=== PATIENT | male | born 1975 | race Two or more races ===

== ENCOUNTER 2024-08-26 10:03 | Outpatient (AMB) | payer MEDICAID, SELFPAY ==
--- NOTE | 2024-08-26 10:10 | PD.RESCLINIC ---
Vital Signs 08/26/24 10:23 Height 1.88 m Height Method Stated Weight 135.284 kg Weight Measurement Method Standing Scale BMI 38.2 BP 145/82 H Blood Pressure Source Automatic Cuff Blood Pressure Location Right Upper Arm Position Sitting Respiration 18 Pulse 67 Pulse Source Monitor Temp 97.7 F Temp Source Oral Pulse Oximetry (%) 98 Oxygen Delivery Method Room Air Allergies/Meds Allergies & Medications Allergies No Known Allergies Allergy (Verified 08/26/24 10:24) MA Intake Visit Data Collection New Patient or Established: Established Patient (seen at [facility] within 3 years) Seen by Clinical Staff ONLY (RN/MA): No Pain Present Currently: Yes Pain Location: Arm Pain scale:: 5 Pain Scale Used: Manzano-Calabrese/Numerical Robotic Maintenance Technician Required: No PCP or OBGYN visit in last 3 months: No Hx Now: No Do You Feel Safe at Home: Yes Authorities Contacted: N/A Smoking Status Smoking Status: Current every day smoker Cessation Counseling Provided: ANNIED was advised that quitting smoking is the single most important factor to protect the health of themselves and their family. Discussed the benefits of quitting smoking with patient. Encouraged patient to quit smoking and provided Cessation assistance materials and resources. Tobacco Use: Cigarette Years smoked: 20 Are you interested in quitting?: Yes Would you like additional Smoking Cessation Counseling?: Yes Immunization / Flu Flu Vaccine in the Last 12 Months: No Flu Vaccine Exclusion Criteria: No Exclusion Criteria Past Medical History Past Medical History NEUROLOGIC: Negative Neurological Disorders CARDIAC: Positive Hypercholesterolemia; Negative Congestive Heart Failure RESPIRATORY: Positive Asthma; Negative Chronic Obstructive Pulmonary Disease (COPD) GASTROINTESTINAL: Negative Gastrointestinal Disorders GENITOURINARY: Negative Genitourinary Disorders or Renal Disease REPRODUCTIVE: Negative Testicular Cancer ENDOCRINE: Negative Diabetes Mellitus Type 1 or Diabetes Mellitus Type 2 HEMATOLOGIC: Negative Blood Disorders OTHER HISTORY: Negative Hospitalization, Down Syndrome, Developmental Delay, Falls, Blood Transfusions, Anesthesia Reactions (previous anesthesia), MRSA, Clostridium Difficile, Cancer or Testicular Cancer Family History FAMILY HISTORY: Positive Family Cardiac Disorders and Family Cancer Social History SMOKING STATUS: Smoking status: Current every day smoker ALCOHOL FREQUENCY: Alcohol Intake Frequency: holidays/special occasions only LIVES WITH: Lives With: Children and Spouse Patient Portal Questionaires Social History Tobacco History Smoking Status: Current every day smoker Alcohol History Alcohol Intake Frequency: holidays/special occasions only Domestic Abuse History Do You Feel Safe at Home: Yes Review of Systems Report any current symptoms Only answer those that you have currently: Past Medical History Past Medical History Have you ever been diagnosed with any of the following: Cardiology Problems Hypercholesterolemia: Yes Congestive Heart Failure: No Respiratory Problems Chronic Obstructive Pulmonary Disease (COPD): No Asthma: Yes Genital/Urinary Problems Renal Disease: No Reproductive Problems Testicular Cancer: No Endocrine Problems Diabetes Mellitus Type 1: No Diabetes Mellitus Type 2: No Other Problems Hospitalization: No Down Syndrome: No Developmental Delay: No Falls: No Blood Transfusions: No Anesthesia Reactions: No (previous anesthesia) MRSA: No Clostridium Difficile: No Cancer: No History of Present Illness HPI Narrative A 49-year-old patient known case of hypertension, hyperlipidemia, obesity, TIA in 2023, nonalcoholic steatohepatitis, 3 mm pulmonary nodule, chronic headache, presented to the clinic after he experienced sudden onset dizziness and fell down and broke his left forearm. Patient reported that the dizziness started suddenly with no warning symptoms, denied any chest pain, tinnitus, palpitation, sweating or chest pain. Denied any blurry vision or diplopia and denied any focal weakness. He reported that it lasted for pressure. Less than 5 seconds and history number the incident. He got up by himself with no need for any spa assistant manager. He went to the ED in [facility] and he was found to have fracture on the left forearm. He did not have x-ray reports or images however he reported that they asked him to follow-up with his PCP for referral to emergency room specialist. On questioning patient reported that he ran out of all his medications including his blood pressure medications. When he was at the ED they mentioned that his blood pressure was within normal limits, and today his blood pressure was also within normal limits. Patient is following up with the personnel generalist manager Dr. Wilman Calderon however because of insurance issues he wanted to switch to another physician as he was paying [id number]. In review of other system patient reported that he has been trying to lose weight however creates no success and he was mentioning that he has chronic knee pain especially on the right side and he believes it is because of his increased body weight and he was wondering if he can get a prescription for weight loss injections. Patient also reported that he has been waiting for sleep study appointment as he believes that he has obstructive sleep apnea because of his obesity and his chronic headaches. Review of Systems Review of Systems Systems Reviewed: All systems reviewed, normal except as documented Objective/Exam Narrative Physical exam: GEN: AOx3, able to speak full sentences HEENT: NC/AC, oral mucosa moist, neck supple CVS: RRR, S1-S2 present, no murmurs appreciated RESP: CTAB GI: soft,non distended, non tender, NBS MSK: Left forearm with cast, normal fitting, no discoloration, no numbness, capillary refill less than 3 seconds. Able to move all fingers in all directions. SKIN: warm and dry SAFETY INSPECTOR: CN II-XII and Sensation grossly intact. Assessment & Plan Diagnosis / Problem List (1) Left forearm fracture: Status: Acute Qualifiers: Encounter type: subsequent encounter Fracture type: closed Fracture healing: with routine healing Qualified Code(s): S52.92XD - Unspecified fracture of left forearm, subsequent encounter for closed fracture with routine healing Plan: ? Stat Referral to orthopedic physician and [place] as per patient request ? Pain is well-controlled by pain medications that was given to him from [facility] (2) Dizziness: Status: Acute Plan: ? Referral to personnel generalist manager in [place] for possible arrhythmias workup. ? Decrease his amlodipine to 5 mg p.o. daily, patient was instructed to follow-up with his blood pressure daily before and after taking his blood pressure medications. ? Refill his blood pressure medication losartan 50 mg p.o. daily ?EKG (3) Obesity (BMI 30-39.9): Status: Acute Plan: ? Zepbound 2.5 mg subcutaneous weekly ? Patient was instructed to keep hydrated and to increase his protein intake. Orders: Orders EKG (RT) Today I20.9 - Angina pectoris, unspecified Referrals Orthopedics S52.92XA - Unspecified fracture of left forearm, initial encounter for closed fracture Cardiology I20.9 - Angina pectoris, unspecified, R42 - Dizziness and giddiness Office Procedures [facility] Level of Care Nursing/Assessment Patient Status: Established Patient Nursing Assessment/Reassessment: Medication Reconciliation, Update PMH in EMR and Vital Signs Coordination of Care: Complex Care and Chronic Disease 1-5, Consent,records obtained, informed consent, Education Simp Pt/Fam, 1 Ins Authorization, Ref for ancillary service and Staff clarify orders Established Patient Charge Established Patient Point Assignment: 120 Established Patient Point Charge: Level 4 (120-155)
[2024-08-26 10:23] VITALS: BP 145/82; PULSE 67; RESP 18; TEMP 36.5; O2SAT 98; BMI 38.2
== END 2024-08-26 11:23 | disposition home or self-care (01) ==
LOC: HODAHC 10:03
PROVIDERS: Supervising Provider Internal Medicine; Visit Provider Student in an Organized Health Care Education/Training Program
DX: R42 Dizziness and giddiness (principal); S52.92XD Unspecified fracture of left forearm, subsequent encounter for closed fracture with routine healing; W19.XXXD Unspecified fall, subsequent encounter; I10 Essential (primary) hypertension; E78.5 Hyperlipidemia, unspecified; E66.9 Obesity, unspecified; Z68.38 Body mass index [BMI] 38.0-38.9, adult; Z86.73 Personal history of transient ischemic attack (TIA), and cerebral infarction without residual deficits; M25.561 Pain in right knee; G89.29 Other chronic pain
CPT/HCPCS: 99214; G0463

== ENCOUNTER 2024-12-05 10:18 | Outpatient (AMB) | payer MEDICAID, SELFPAY ==
[2024-12-05 10:29] VITALS: BP 135/77; PULSE 59; RESP 18; TEMP 37; O2SAT 98; BMI 37.3
--- NOTE | 2024-12-05 10:29 | ACNOTE_ITS ---
Vital Signs 12/05/24 10:29 Height 1.88 m Height Method Stated Weight 132.109 kg Weight Measurement Method Standing Scale BMI 37.3 BP 135/77 H Blood Pressure Source Automatic Cuff Blood Pressure Location Right Upper Arm Position Sitting Respiration 18 Pulse 59 L Pulse Source Monitor Temp 98.6 F Temp Source Temporal Artery Scan Pulse Oximetry (%) 98 Oxygen Delivery Method Room Air Allergies/Meds Allergies & Medications Allergies No Known Allergies Allergy (Verified 12/05/24 10:31) Medication Reconciliation amlodipine 10 mg tablet 5 mg (1/2 x 10 mg) PO QDAY hypertension #30 tabs 08/07 08/30 [Rx Confirmed 12/05/24] atorvastatin 80 mg tablet 80 mg PO QPM #30 tabs 08/26/24 [Rx Confirmed 12/05/24] fenofibrate 160 mg tablet 160 mg PO QDAY Hypertriglyceridemia #30 tabs 08/26/24 [Rx Confirmed 12/05/24] fluoxetine 20 mg capsule 20 mg PO QDAY #30 caps 08/26/24 [Rx Confirmed 12/05/24] gabapentin 100 mg capsule 100 mg PO TID #90 caps 08/26/24 [Rx Confirmed 12/05/24] losartan 25 mg tablet 50 mg (2 x 25 mg) PO QDAY 30 days #60 tabs 08/26/24 [Rx Confirmed 12/05/24] pantoprazole 40 mg tablet,delayed release 40 mg PO QDAY #30 tabs 08/26/24 [Rx Confirmed 12/05/24] tizanidine 2 mg capsule 2 mg PO Q8H PRN muscle spasticity #30 caps 08/26/24 [Rx Confirmed 12/05/24] tirzepatide 5 mg/0.5 mL subcutaneous pen injector 5 mg (0.5 mL) subcut QWEEK #2 mL 11/13/24 [Rx Confirmed 12/05/24] terbinafine HCl 1 % topical cream (Athlete's Foot (terbinafine)) 1 applic topical BID athlete's foot #15 grams 12/05/24 [Rx] KEVIN Intake Visit Data Collection New Patient or Established: Established Patient (seen at [facility] within 3 years) Seen by Clinical Staff ONLY (RN/KEVIN): No Pain Present Currently: No Pain scale:: 0 Pain Scale Used: ManzanoElke/Numerical Vacuum Cleaner Mechanic Required: No PCP or OBGYN visit in last 3 months: No Hx Now: No Do You Feel Safe at Home: Yes Authorities Contacted: N/A Smoking Status Smoking Status: Current every day smoker Cessation Counseling Provided: BAO was advised that quitting smoking is the single most important factor to protect the health of themselves and their family. Discussed the benefits of quitting smoking with patient. Encouraged patient to quit smoking and provided Cessation assistance materials and resources. Immunization / Flu Flu Vaccine in the Last 12 Months: No Flu Vaccine Exclusion Criteria: No Exclusion Criteria Past Medical History Past Medical History NEUROLOGIC: Negative Neurological Disorders CARDIAC: Positive Hypercholesterolemia; Negative Congestive Heart Failure RESPIRATORY: Positive Asthma; Negative Chronic Obstructive Pulmonary Disease (COPD) GASTROINTESTINAL: Negative Gastrointestinal Disorders GENITOURINARY: Negative Genitourinary Disorders or Renal Disease REPRODUCTIVE: Negative Testicular Cancer ENDOCRINE: Negative Diabetes Mellitus Type 1 or Diabetes Mellitus Type 2 HEMATOLOGIC: Negative Blood Disorders OTHER HISTORY: Negative Hospitalization, Down Syndrome, Developmental Delay, Falls, Blood Transfusions, Anesthesia Reactions (previous anesthesia), MRSA, Clostridium Difficile, Cancer or Testicular Cancer Family History FAMILY HISTORY: Positive Family Cardiac Disorders and Family Cancer Social History SMOKING STATUS: Smoking status: Current every day smoker ALCOHOL FREQUENCY: Alcohol Intake Frequency: holidays/special occasions only LIVES WITH: Lives With: Children and Spouse Patient Portal Questionaires Social History Tobacco History Smoking Status: Current every day smoker Alcohol History Alcohol Intake Frequency: holidays/special occasions only Domestic Abuse History Do You Feel Safe at Home: Yes Review of Systems Report any current symptoms Only answer those that you have currently: Past Medical History Past Medical History Have you ever been diagnosed with any of the following: Cardiology Problems Hypercholesterolemia: Yes Congestive Heart Failure: No Respiratory Problems Chronic Obstructive Pulmonary Disease (COPD): No Asthma: Yes Genital/Urinary Problems Renal Disease: No Reproductive Problems Testicular Cancer: No Endocrine Problems Diabetes Mellitus Type 1: No Diabetes Mellitus Type 2: No Other Problems Hospitalization: No Down Syndrome: No Developmental Delay: No Falls: No Blood Transfusions: No Anesthesia Reactions: No (previous anesthesia) MRSA: No Clostridium Difficile: No Cancer: No History of Present Illness HPI Narrative 12/05/2024: Patient Presents to [facility] for referral for ENT. Patient states he recent ly fell on 12/02 and injured his face. He went to the ED at [facility] and was found to have a broken nose and told to f/u with his PCP for a referral to ENT. He states this is 2nd time in the last three months that he has had a syncopal episode with the last episode causing a left arm fracture for which he is still undergoing PT. He does not note any pre-syncopal symptoms. He states he was down for a few seconds before awakening. He denies any urinary/bowel incontinence, tongue biting during the episode. No witnessed convulsions. As this is the 2nd syncopal episode in 3 months, will refer to cardiology for possible underlying arrhythmia causing theses episodes. Due to patient's insurance, will refer to Dr. Hi in [place]. May need a holter monitor. Patient also notes he recently had a pedicure on his feet. He notes that his right toenail has fallen off and now has a fungal infection for which terbinafine will be prescribed. Review of Systems Review of Systems Systems Reviewed: All systems reviewed, normal except as documented Objective/Exam Narrative Physical exam: General: Not in any visible or apparent acute distress, well appearing, alert, pleasant and interactive HEENT: Abrasion noted on the forehead, and on the bridge of the nose and bruising noted under both eyes consistent with trauma from fall CVS: S1S2 Regular rate and rhythm, No murmurs, rubs or gallops Lungs: Normal respiratory effort, no wheezing rhonchi or rales, CTAB Abd: Soft, no tenderness to palpation, no guarding, +BS, no organomegaly Ext: No edema, warm well perfused, normal tone and ROM, strength and sensation intact, cap refill less than 2, +2 dp equal bilaterally Skin: well healed abrasion on the forehead and at the bridge of the nose, scar noted on LUE arm from surgery Neuro: no gross focal neurological deficits Psych: Appropriate mood and affect Assessment & Plan Diagnosis / Problem List (1) Syncopal episodes: Status: Acute Assessment & Plan: Patient with 2 recent syncopal episodes in the span of 3 months. First episode cause a fractue of his left arm requiring surgery and is currently undergoing PT. Most recent syncopal episode causing fracture of his nose. Plan: -Labs ordered -Referral for cardiolgy, as he may have a underlying arrythmia, may need holter monitor. (2) Facial bone fracture: Status: Acute Assessment & Plan: Nasal fracture after syncopal episode. Patient was evaluated at outside facility and was advised to obtain referral for ENT for further management. Plan: -ENT referral provided (3) Athletes foot: Status: Acute Assessment & Plan: Patient recently underwent pedicure. Now states he has fungal infection with loss of 1st digit left toe nail. Plan: RX: Terbinafine to be applied to b/l feet. Orders: Orders Comprehensive Metabolic Panel Today R55 - Syncope and collapse Lipid Panel Today R55 - Syncope and collapse Thyroid Stimulating Hormone Today R55 - Syncope and collapse CBC Auto Diff Post-Transfusion Today R55 - Syncope and collapse T4 (Thyroxine) Today R55 - Syncope and collapse Magnesium Today R55 - Syncope and collapse Referrals Ears, Nose, and Throat S02.92XA - Unspecified fracture of facial bones, initial encounter for closed fracture Cardiology R55 - Syncope and collapse Office Procedures [facility] Level of Care Nursing/Assessment Patient Status: Established Patient Nursing Assessment/Reassessment: Medication Reconciliation, Update PMH in EMR and Vital Signs Coordination of Care: Complex Care and Chronic Disease 1-5, Consent,records obtained, informed consent, Education Simp Pt/Fam and Staff clarify orders Established Patient Charge Established Patient Point Assignment: 85 Established Patient Point Charge: EP Level 3 (80-115)
== END 2024-12-05 11:20 | disposition home or self-care (01) ==
LOC: HODAHC 10:18
PROVIDERS: Supervising Provider Internal Medicine; Visit Provider Student in an Organized Health Care Education/Training Program
DX: S02.2XXA Fracture of nasal bones, initial encounter for closed fracture (principal); W19.XXXA Unspecified fall, initial encounter; R55 Syncope and collapse; B35.3 Tinea pedis
CPT/HCPCS: 99213; G0463

== ENCOUNTER 2025-01-07 13:25 | Outpatient (AMB) | payer MEDICAID, SELFPAY ==
[2025-01-07 13:33] VITALS: BP 137/82; PULSE 77; RESP 18; TEMP 36.6; O2SAT 94; BMI 37.5
--- NOTE | 2025-01-07 13:33 | PD.RESCLINIC ---
Vital Signs 01/07/25 13:33 Height 1.88 m Height Method Stated Weight 132.562 kg Weight Measurement Method Standing Scale BMI 37.5 BP 137/82 H Blood Pressure Source Automatic Cuff Blood Pressure Location Right Upper Arm Position Sitting Respiration 18 Pulse 77 Pulse Source Monitor Temp 97.8 F Temp Source Temporal Artery Scan Pulse Oximetry (%) 94 L Oxygen Delivery Method Room Air Allergies/Meds Allergies & Medications Allergies No Known Allergies Allergy (Verified 01/15/25 13:19) Medication Reconciliation atorvastatin 80 mg tablet 80 mg PO QPM #30 tabs 08/26/24 [Rx Confirmed 01/15/25] fenofibrate 160 mg tablet 160 mg PO QDAY Hypertriglyceridemia #30 tabs 08/26/24 [Rx Confirmed 01/15/25] fluoxetine 20 mg capsule 20 mg PO QDAY #30 caps 08/26/24 [Rx Confirmed 01/15/25] gabapentin 100 mg capsule 100 mg PO TID #90 caps 08/26/24 [Rx Confirmed 01/15/25] pantoprazole 40 mg tablet,delayed release 40 mg PO QDAY #30 tabs 08/26/24 [Rx Confirmed 01/15/25] tizanidine 2 mg capsule 2 mg PO Q8H PRN muscle spasticity #30 caps 08/26/24 [Rx Confirmed 01/15/25] tirzepatide 5 mg/0.5 mL subcutaneous pen injector 5 mg (0.5 mL) subcut QWEEK #2 mL 11/13/24 [Rx Confirmed 01/15/25] amlodipine 10 mg tablet 5 mg (1/2 x 10 mg) PO QDAY hypertension #30 tabs 12/19/24 [Rx Confirmed 01/15/25] losartan 25 mg tablet 50 mg (2 x 25 mg) PO QDAY 30 days #60 tabs 12/19/24 [Rx Confirmed 01/15/25] terbinafine HCl 1 % topical cream (Athlete's Foot (terbinafine)) 1 applic topical BID athlete's foot #15 grams 01/07/25 [Rx Confirmed 01/15/25] terbinafine HCl 250 mg tablet 250 mg PO QDAY #14 tabs 01/07/25 [Rx Confirmed 01/15/25] MA Intake Visit Data Collection PCP or OBGYN visit in last 3 months: No Smoking Status Smoking Status: Current every day smoker Cessation Counseling Provided: BAO was advised that quitting smoking is the single most important factor to protect the health of themselves and their family. Discussed the benefits of quitting smoking with patient. Encouraged patient to quit smoking and provided Cessation assistance materials and resources. Tobacco Use: Nicotine Years smoked: 1 Are you interested in quitting?: No Immunization / Flu Flu Vaccine in the Last 12 Months: Yes Flu Vaccine Exclusion Criteria: Already Received Past Medical History Past Medical History NEUROLOGIC: Negative Neurological Disorders CARDIAC: Positive Hypercholesterolemia; Negative Congestive Heart Failure RESPIRATORY: Positive Asthma; Negative Chronic Obstructive Pulmonary Disease (COPD) GASTROINTESTINAL: Negative Gastrointestinal Disorders GENITOURINARY: Negative Genitourinary Disorders or Renal Disease REPRODUCTIVE: Negative Testicular Cancer ENDOCRINE: Negative Diabetes Mellitus Type 1 or Diabetes Mellitus Type 2 HEMATOLOGIC: Negative Blood Disorders OTHER HISTORY: Negative Hospitalization, Down Syndrome, Developmental Delay, Falls, Blood Transfusions, Anesthesia Reactions (previous anesthesia), MRSA, Clostridium Difficile, Cancer or Testicular Cancer Family History FAMILY HISTORY: Positive Family Cardiac Disorders and Family Cancer Social History SMOKING STATUS: Smoking status: Current every day smoker ALCOHOL FREQUENCY: Alcohol Intake Frequency: holidays/special occasions only LIVES WITH: Lives With: Children and Spouse Patient Portal Questionaires Social History Tobacco History Smoking Status: Current every day smoker Alcohol History Alcohol Intake Frequency: holidays/special occasions only Review of Systems Report any current symptoms Only answer those that you have currently: Past Medical History Past Medical History Have you ever been diagnosed with any of the following: Cardiology Problems Hypercholesterolemia: Yes Congestive Heart Failure: No Respiratory Problems Chronic Obstructive Pulmonary Disease (COPD): No Asthma: Yes Genital/Urinary Problems Renal Disease: No Reproductive Problems Testicular Cancer: No Endocrine Problems Diabetes Mellitus Type 1: No Diabetes Mellitus Type 2: No Other Problems Hospitalization: No Down Syndrome: No Developmental Delay: No Falls: No Blood Transfusions: No Anesthesia Reactions: No (previous anesthesia) MRSA: No Clostridium Difficile: No Cancer: No History of Present Illness HPI Narrative Bao Street is a 49-year-old male with a past medical history of hypertension, hyperlipidemia, TIA in 2023, nonalcoholic steatohepatitis, incidental pulmonary nodule and syncope presents to [facility] on 01/07 for follow-up. Patient states that he has had 2 syncopal episodes within the last year, most recent being at the end of November, that led to various injuries. After first fall, he fractured his left arm for which she is undergoing PT and after a second fall he had broken his nose and at this point cannot breathe through his left nostril. At this time, multiple ENT offices have been reached out to at this far none accept his insurance. Regarding his syncopal events, denies any prodromal symptoms including nausea, sweating, lightheadedness and states that he becomes unconscious suddenly for a few seconds and wakes up without any reported dizziness. These falls have been witnessed and patient states that there been no reported tonic or clonic movements, tongue biting, or postictal confusion. Also denies any cardiac history, cardiac family history, and denies episodes of chest discomfort or shortness of breath. Cardiology referral already sent but will change from routine to urgent given nature of syncopal events. Additionally, ordered and EKG and labs (CBC, CMP, Mg, TSH/T4) as they have not been done in over a year. Of note, he has developed a rash in his arms and underbelly that he descrbies as pruritic only, not painful, and appeared relatively suddenly. They are red/brown in color, raised, without clear borders. Recommended to try OTC hydrocortisone cream and resent his terbinafine as he was not aware that it was sent. Review of Systems Review of Systems Systems Reviewed: All systems reviewed, normal except as documented Objective/Exam Narrative Physical exam: General: AOx3, no acute distress, able to speak full sentences HEENT: NC/AT, mucous membranes moist, bilateral sclera anicteric Cardiovascular: regular rate and rhythm, S1/S2 present, no murmurs appreciated Pulmonary: clear to auscultation bilaterally, no rales/rhonchi/wheezes Abdominal: soft, non-tender, non-distended, no rebound/guarding, normal bowel sounds present Musculoskeletal: normal ROM, no peripheral edema Skin: warm and dry, intact, no rashes Neuro: CN II-XII intact, no focal deficits Assessment & Plan Diagnosis / Problem List (1) Syncopal episodes: Status: Acute Qualifiers: Syncope type: unspecified Qualified Code(s): R55 - Syncope and collapse Assessment & Plan: States that he has had 2 syncopal episodes within the last year, most recent being at the end of November, that led to various injuries. After first fall, he fractured his left arm for which she is undergoing PT and after a second fall he had broken his nose and at this point cannot breathe through his left nostril. At this time, multiple ENT offices have been reached out to at this far none accept his insurance. Regarding his syncopal events, denies any prodromal symptoms including nausea, sweating, lightheadedness and states that he becomes unconscious suddenly for a few seconds and wakes up without any reported dizziness. These falls have been witnessed and patient states that there been no reported tonic or clonic movements, tongue biting, or postictal confusion. Also denies any cardiac history, cardiac family history, and denies episodes of chest discomfort or shortness of breath. Cardiology referral already sent but will change from routine to urgent given nature of syncopal events. Additionally, ordered and EKG and labs (CBC, CMP, Mg, TSH/T4) as they have not been done in over a year. Plan: - Urgent cardiology referral - EKG - CBC, CMP, Mg, TSH/T4 - Follow-up in 5 weeks (2) Rash: Status: Acute Assessment & Plan: Developed a rash in his arms and underbelly that he descrbies as pruritic only, not painful, and appeared relatively suddenly after foot infection and suspect to be due to spreading of fungal infection. Plan: - Terbinafine 250 mg p.o. daily for two weeks (3) Athletes foot: Status: Acute Qualifiers: Laterality: bilateral Qualified Code(s): B35.3 - Tinea pedis Plan: - Terbinafine resent and to be applied to bilateral feet - Terbinafine as above (4) Hypertension: Status: Acute Qualifiers: Hypertension type: primary hypertension Qualified Code(s): I10 - Essential (primary) hypertension Assessment & Plan: States that he is no longer taking amlodipine. Plan: - Continue losartan 50 mg daily Orders: Orders EKG (RT) 01/07/25 R55 - Syncope and collapse Referrals Cardiology R55 - Syncope and collapse Office Procedures [facility] Level of Care Nursing/Assessment Patient Status: Established Patient Nursing Assessment/Reassessment: Medication Reconciliation, Update PMH in EMR and Vital Signs Coordination of Care: Complex Care and Chronic Disease 1-5, Consent,records obtained, informed consent, Education Simp Pt/Fam and Staff clarify orders Established Patient Charge Established Patient Point Assignment: 85 Established Patient Point Charge: Level 3 (80-115)
== END 2025-01-07 14:20 | disposition home or self-care (01) ==
LOC: HODAHC 13:25
PROVIDERS: Supervising Provider Internal Medicine
DX: R55 Syncope and collapse (principal); B35.3 Tinea pedis; I10 Essential (primary) hypertension; L29.9 Pruritus, unspecified
CPT/HCPCS: 99213; G0463